=== PATIENT | female | born 1970 | race Caucasian/White ===

== ENCOUNTER → 2024-03-06 18:52 | Outpatient (REF) | payer BC, SELFPAY | LOC: WDC 18:52 | PROVIDERS: ATTENDING PHYSICIAN Internal Medicine | DX: Z12.31 Encounter for screening mammogram for malignant neoplasm of breast (principal) | CPT/HCPCS: 77063; 77067 ==

== ENCOUNTER 2024-06-05 11:20 | Emergency (ER) | payer BC, SELFPAY ==
[2024-06-05] VITALS (8 sets, daily range): BP systolic 110–158; BP diastolic 67–111; BMI 25.8
--- NOTE | 2024-06-05 12:25 | ED.GENMED ---
History of Present Illness
General
Chief Complaint: Headache
Source: patient
Exam Limitations: none
Time Seen by Provider: 06/05/24 12:08
Nursing documentation reviewed up to this point in time: agreed with
History of Present Illness
History of Present Illness:
83-year-old female presents emerged part complaining of headache and neck pain for the past 2 days. She has not been feeling well for a week. She has reflux. Took Rolaids, hydrocodone.
Past History
Past History
ED Past Medical History: GERD, HTN, Other (lumbar DD, Kidney stones), Other (Raynauds) and Other (C-diff colitis)
Social History
Tobacco: Non-smoker
Alcohol: None
Drug: None
Personal:
Living: with family
Employment: Employed
Review of Systems
Review of Systems
Allergies reviewed?: Yes
All Other Systems: Not applicable
Constitutional: Reports no symptoms
EENT: Reports no symptoms
Respiratory: Reports no symptoms
Cardiac: Reports no symptoms
ABD/GI: Reports nausea
: Reports no symptoms
Musculoskeletal: Reports neck pain
Skin: Reports no symptoms
Neurological: Reports no symptoms
Endocrine: Reports no symptoms
Hematologic/Lymphatic: Reports no symptoms
Psychiatric: Reports no symptoms
Phy Exam
Physical Exam
Physical Exam:
Physical Exam
General: In darkened room with sunglasses on
Neck: supple. no meningeal signs. normal posterior pharynx
Heart: s1/s2 regular rate and rhythm, no murmur. equal radial
pulses.
HEENT: Pupils equal round reactive to light, EOMI
Lungs: no acute respiratory distress. clear bilaterally
Abdomen: normal bowel sounds. not tender. no CVAT
Neuro: alert and oriented. no focal neurological deficits cranial nerves II through XII intact
Skin: no rash
Psychiatric: well kept. interactive and cooperative
Extremities: no edema. no calf tenderness. negative homans. good distal pulses
Course
Orders/Labs/Results
Orders:
Orders
06/05/24 12:00
CMP [Comprehensive Metabolic Panel] Urgent
Complete Blood Count/With Diff Urgent
06/05/24 12:23
IV Insert/Care/Rem.- Treatment PRN
0.9% Sodium Chloride 1000 ml [Nss] 1,000 ml IV BOLUS
Diphenhydramine [Benadryl] 25 mg IV NOW STA
Metoclopramide [Reglan] 10 mg IV NOW STA
06/05/24 12:27
CT Head & Neck Angio W/wo IV Urgent
Comment:
Reason For Exam: headache and neck pain
06/05/24 15:25
Dexamethasone Sod Phosphate [Decadron] 10 mg IV NOW STA
Ketorolac [Toradol] 15 mg IV NOW STA
Abnormal Lab Results
06/05/24
12:00
Abs Immat Gran (auto) 0.1 H 10^3/uL
(0-0.05)
Absolute Lymphs (auto) 3.7 H 10^3/uL
(1.2-3.4)
Absolute Monos (auto) 0.7 H 10^3/uL
(0.1-0.6)
Immature Gran % 1.4 H %
(0-0.5)
Glucose 100 H mg/dl
(70-99)
06/05/24 12:00
06/05/24 12:00
Vital Signs
Initial and Last Documented VS:
Initial Vital Signs
Temp Pulse Resp BP Pulse Ox
98.1 F 90 18 153/94 100
06/05/24 11:25 06/05/24 11:25 06/05/24 11:25 06/05/24 11:25 06/05/24 11:25
Last Documented Vital Signs
Temp Pulse Resp BP Pulse Ox
98.1 F 68 17 112/67 98
06/05/24 11:25 06/05/24 14:00 06/05/24 14:00 06/05/24 14:00 06/05/24 14:15
MDM/Problems Addressed
Differential Diagnosis Includes:
Vertebral artery dissection, intracranial hemorrhage, intracranial tumor
MDM/Problems Addressed:
53-year-old female with headache, likely migraine. CT angiography head and neck no acute findings. Patient improved after IV Reglan and Benadryl. Stable for discharge.
*Radiology
Radiology exam reviewed: radiology read reviewed (CTA head and neck no acute findings)
*Pulse Oximetry
Patient hypoxic: no
*EKG
Interpreted by ED Provider?: NA
*Operations And Maintenance Technican Interpretation
Rate: Operations And Maintenance Technican- N/A
*Critical Care Note
Total Time (30-74mins, 75-104mins- exclusive of procedures): Not Applicable
Data Reviewed
Further Testing Considered But Not Given:
Lumbar puncture not indicated
Patient Management
Social determinants of health affecting care: Living situation
Escalation/DeEscalation of care consider admission/obs:
Admit not indicated
ED Attending Note
-
Portions of this chart may have been created with voice recognition software.� Occasional wrong word or��sound alike� substitutions may have occurred due to the inherent limitations of voice recognition software.
Discharge Plan
Departure
Patient Disposition: Home (Routine Discharge)
Date of Disposition: 06/05/24
Time of Disposition: 15:34
Patient with high blood pressure during this ER visit?: No
Condition: Good
Discharge Problem:
Migraine
Instructions: Migraines (DC)
Prescriptions:
New
rizatriptan 10 mg tablet,disintegrating
10 mg PO ONCE MDD 30 mg PRN (Reason: migraine headache) Qty: 10 0RF
Rx Instructions:
may repeat after 1 hour, no more than 3 tabs in 24 hours
No Action
cyclobenzaprine 10 MG tablet
10 mg PO TIDPRN PRN (Reason: neck pain)
clonazepam 0.5 MG tablet
0.25 mg PO BID PRN (Reason: anxiety)
oxycodone-acetaminophen 5 MG/325 MG tablet
0.5 tab PO Q4HPRN PRN (Reason: neck pain)
pantoprazole 40 MG tablet,delayed release (DR/EC)
40 mg PO DAILY
naproxen sodium [Aleve] 220 MG tablet
440 mg PO BID PRN (Reason: pain)
metoprolol tartrate 50 MG tablet
50 mg PO DAILY
zolpidem 5 MG tablet
5 mg PO HS
Saccharomyces boulardii 250 MG capsule
250 mg PO DAILY
cholecalciferol (vitamin D3) 1,000 UNITS tablet
1,000 units PO DAILY
Lactobac 2-Bifido 1-S. therm [VSL#3] 1 EACH capsule
1 cap PO DAILY
amoxicillin-pot clavulanate 1 TABLET tablet
1 tab PO Q12 Qty: 20 0RF
ondansetron 4 MG tablet,disintegrating
4 mg PO TIDPRN PRN (Reason: nausea/vomiting) Qty: 8 0RF
hydrocodone-acetaminophen [[place]] 1 EACH tablet
1 ea PO Q4HPRN PRN (Reason: severe pain) Qty: 8 0RF
Referrals:
Chinmay Umaña MD [Family Provider] - Call in 1-3 days for appt
Interventions
Interventions:
*Risk Screen - Suicide Last Done: 06/05/24 11:25
*General Assessment Last Done: 06/05/24 11:25
*Neglect/Abuse Screening Last Done: 06/05/24 11:25
ED- Neurological Assessment Last Done: 06/05/24 12:00
Discharge Date and Time
Print Language: YI
[2024-06-05] MEDS: REGLAN 10 MG IV (12:29)
[2024-06-05] MEDS: BENADRYL 25 MG IV (12:29)
[2024-06-05] MEDS: NSS 1000 IV (12:29)
[2024-06-05 12:30] LABS: % Basophils 0.8 % (0-2); % Eosinophils 2.1 % (0-6); % Immature Granulocytes 1.4 % (0-0.5); % Lymphocytes 43.6 % (20.5-51.1); % Monocytes 8.1 % (1.7-9.3); Absolute Basophils 0.1 10^3/uL (0-0.2); Absolute Eosinophils 0.2 10^3/uL (0-0.7); Absolute Immature Granulocytes 0.1 10^3/uL (0-0.05); Absolute Lymphocytes 3.7 10^3/uL (1.2-3.4); Absolute Monocytes 0.7 10^3/uL (0.1-0.6); Absolute Neutrophils 3.7 10^3/uL (1.4-6.5); Hematocrit 42.3 % (37.0-47.0); Hemoglobin 14.7 g/dL (12.0-16.0); Mean Corp Hgb Conc. 34.8 g/dL (33.0-37.0); Mean Corpuscular Hgb 30.9 pg (27.0-31.0); Mean Corpuscular Volume 89.1 fL (81.0-99.0); Mean Platelet Volume 9.1 fL (7.4-10.4); Nucleated Red Blood Cells % 0 %; Platelet Count 330 10^3/uL (130-400); Red Blood Cell Count 4.75 10^6/uL (4.20-5.40); Red Cell Dist. Width 11.8 % (11.5-14.5); White Blood Cell Count 8.5 10^3/uL (4.8-10.8)
[2024-06-05 12:39] LABS: ALT (SGPT) 26 U/L (0-35); AST (SGOT) 25 U/L (14-36); Albumin 4.8 g/dl (3.5-5.0); Alkaline Phosphatase 54 U/L (38-126); Blood Urea Nitrogen 15 mg/dl (7-17); Carbon Dioxide 29 mmol/L (22-30); Chloride 99 mmol/L (98-107); Estimated Creatinine Clearance 66 ml/min; Glucose 100 mg/dl (70-99); Potassium 4.3 mmol/L (3.5-5.1); Sodium 140 mmol/L (135-145); Total Bilirubin 0.5 mg/dl (0.2-1.3); eGFR > 60.00
[2024-06-05] MEDS: TORADOL 15 MG IV (15:39)
[2024-06-05] MEDS: DECADRON 10 MG IV (15:43)
== END 2024-06-05 16:16 | disposition home or self-care (01) ==
LOC: EMR 11:20
PROVIDERS: EMERGENCY PHYSICIAN Emergency Medicine; FAMILY PHYSICIAN Internal Medicine
DX: G43.909 Migraine, unspecified, not intractable, without status migrainosus (principal); K21.9 Gastro-esophageal reflux disease without esophagitis; I10 Essential (primary) hypertension; I73.00 Raynaud's syndrome without gangrene; Z87.442 Personal history of urinary calculi
CPT/HCPCS: 99284; 96374; 96375; 96361; 70496; 70498; 80053; 85025; Q9967

== ENCOUNTER → 2025-03-09 14:24 | Outpatient (REF) | payer BC, SELFPAY | LOC: WDC 14:24 | PROVIDERS: ATTENDING PHYSICIAN Obstetrics & Gynecology; FAMILY PHYSICIAN Family Medicine | DX: Z12.31 Encounter for screening mammogram for malignant neoplasm of breast (principal) | CPT/HCPCS: 77063; 77067 ==